=== PATIENT | male | born 1965 | race Caucasian/White ===

== ENCOUNTER 2017-07-24 10:52 | Outpatient (RCR) | payer OTHER | END 2017-07-30 | LOC: OT 10:52 | PROVIDERS: ATTEND Surgery Surgery of the Hand | DX: S67.196D Crushing injury of right little finger, subsequent encounter (principal); S62.630D Displaced fracture of distal phalanx of right index finger, subsequent encounter for fracture with routine healing; S61.314D Laceration without foreign body of right ring finger with damage to nail, subsequent encounter; M79.644 Pain in right finger(s); M25.641 Stiffness of right hand, not elsewhere classified ==